=== PATIENT | female | born 2000 | race Caucasian/White ===

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

== ENCOUNTER 2021-02-09 11:12 | Observation (INO) | payer OTHER ==
[~2021-02-09 11:12] MED LIST changes: +AZIT500T4 PO; +CEPH500T PO
[2021-02-09] MEDS ORDERED: IV RINGERS,LACTATED 1000ML 1,000 ML IV PRN ×2 (12:15→16:15)
[2021-02-09 12:52] LABS: CREATININE,RANDOM URINE 66.6 mg/dL (Not Establ.)
[2021-02-09 12:55] LABS: CALCIUM 9.1 mg/dL (8.5-10.1); CREATININE 0.7 mg/dL (0.6-1.0); GFR 107.8; POTASSIUM 3.9 mmol/L (3.5-5.1)
[2021-02-09 12:57] LABS: BASO # 0.1 x10^3/uL (0.0-0.2); BASO % 1 % (0-3); EOS # 0.3 x10^3/uL (0.0-0.7); EOS % 2 % (0-3); HEMATOCRIT 32.4 % (36.0-47.0); HEMOGLOBIN 10.7 g/dL (12.0-15.5); LYMPH # 2.9 x10^3/uL (1.0-4.8); LYMPH % 25 % (24-48); MEAN CORPUSCULAR HEMOGLOBIN 26 pg (25-35); MEAN CORPUSCULAR HGB CONC 33 g/dL (31-37); MEAN CORPUSCULAR VOLUME 80 fL (79-100); MONO # 0.7 x10^3/uL (0.0-1.1); MONO % 6 % (0-9); NEUT # 7.6 x10^3/uL (1.8-7.7); NEUT % 66 % (31-73); PLATELET COUNT 218 x10^3/uL (140-400); RED BLOOD COUNT 4.05 x10^6/uL (3.50-5.40); WHITE BLOOD COUNT 11.6 x10^3/uL (4.0-11.0)
[2021-02-09 13:02] LABS: ALBUMIN 2.7 g/dL (3.4-5.0); ALBUMIN/GLOBULIN RATIO 0.7 (1.0-1.7); TOTAL BILIRUBIN 0.2 mg/dL (0.2-1.0); TOTAL PROTEIN 6.8 g/dL (6.4-8.2)
== END 2021-02-09 14:00 | disposition home or self-care (01) ==
LOC: 3 SO LND 11:12
PROVIDERS: ADMIT Obstetrics & Gynecology; ATTEND Obstetrics & Gynecology
DX: O13.3 Gestational [pregnancy-induced] hypertension without significant proteinuria, third trimester (principal); Z3A.39 39 weeks gestation of pregnancy
CPT/HCPCS: 36415; 80053; 82570; 84156; 85025; G0378; G0379

== ENCOUNTER 2021-02-13 04:23 | Inpatient (IN) | payer OTHER ==
[~2021-02-13] VITALS: Ht 157.5 cm; Wt 101.5 kg
[2021-02-13] MEDS ORDERED: fentaNYL PF VIAL 100 MCG/2 ML VIAL IVP PRN (05:00)
[2021-02-13] MEDS ORDERED: PENICILLIN G K 5,000,000 UNIT in IV DEXTROSE 5% 100ML 100 ML IV ONE (05:00)
[2021-02-13] MEDS ORDERED: LIDOCAINE 1% PF 30 ML VIAL. INJ PRN (05:00)
[2021-02-13] MEDS ORDERED: OXYTOCIN 30 UNIT/500 ML PREMIX 500 ML IV PRN ×2 (05:00→10:15)
[2021-02-13] MEDS ORDERED: MAG HYDROX/ALUMINUM HYD/SIMETH 30 ML ORAL.SUSP PO PRN ×2 (05:00→10:15)
[2021-02-13] MEDS ORDERED: 0.9 % SODIUM CHLORIDE 10 ML DISP.SYRIN. IV PRN ×2 (05:00→10:15)
[2021-02-13] MEDS ORDERED: IV RINGERS,LACTATED 1000ML 1,000 ML IV PRN (05:00)
[2021-02-13] MEDS ORDERED: ONDANSETRON PF 4 MG/2 ML VIAL. IVP PRN (05:00)
[2021-02-13] MEDS ORDERED: TERBUTALINE 1 MG/ML VIAL. SQ PRN (05:00)
[2021-02-13 05:08] LABS: BILIRUBIN,URINE NEGATIVE (NEG); CLARITY,URINE CLOUDY; COLOR,URINE YELLOW; NITRITE,URINE NEGATIVE (NEG); PH,URINE 6.5 (<5.0-8.0); PROTEIN,URINE NEGATIVE (NEG-TRACE); UROBILINOGEN,URINE 0.2 mg/dL (0.2 mg/dL)
[2021-02-13 05:15] LABS: AMPHETAMINE/METHAMPHETAMINE NEG (NEG); BARBITURATES NEG (NEG); BENZODIAZEPINES NEG (NEG); CANNABINOIDS NEG (NEG); COCAINE NEG (NEG); METHADONE NEG (NEG); OPIATES NEG (NEG); PHENCYCLIDINE NEG (NEG)
[2021-02-13] MEDS: IV RINGERS,LACTATED 1000ML 1,000 ML IV SCH ×3 (05:15→11:43)
[2021-02-13 05:24] LABS: BASO % 0 % (0-3); EOS # 0.2 x10^3/uL (0.0-0.7); EOS % 2 % (0-3); HEMATOCRIT 32.5 % (36.0-47.0); HEMOGLOBIN 10.7 g/dL (12.0-15.5); LYMPH % 22 % (24-48); MEAN CORPUSCULAR HEMOGLOBIN 26 pg (25-35); MEAN CORPUSCULAR HGB CONC 33 g/dL (31-37); MEAN CORPUSCULAR VOLUME 80 fL (79-100); MONO # 0.8 x10^3/uL (0.0-1.1); MONO % 6 % (0-9); NEUT # 9.6 x10^3/uL (1.8-7.7); NEUT % 71 % (31-73); PLATELET COUNT 217 x10^3/uL (140-400); RED BLOOD COUNT 4.07 x10^6/uL (3.50-5.40); RED CELL DISTRIBUTION WIDTH 15.5 % (11.5-14.5); WHITE BLOOD COUNT 13.7 x10^3/uL (4.0-11.0)
[2021-02-13 05:35] LABS: BACTERIA,URINE MANY /HPF (0-FEW); WBC,URINE TNTC /HPF (0-4)
[2021-02-13 05:36] LABS: TRICHOMONAS,URINE PRESENT
[2021-02-13 05:48] VITALS: BP 134/71
[2021-02-13] MEDS ORDERED: ROPIVacaine 0.2% PF 10 ML VIAL. ONE ×2 (06:23→07:00)
[2021-02-13] MEDS ORDERED: L&D EPIDURAL SYRINGE 50 ML ONE (06:24)
[2021-02-13] MEDS ORDERED: L&D EPIDURAL 50 ML SYRINGE. ONE (07:00)
[2021-02-13] MEDS ORDERED: OXYTOCIN PREMIX 30 UNIT/500 ML NS BAG. IV ONE (07:00)
--- NOTE | 2021-02-13 07:57 | PDOC1 ---
OB - History Hx of Present Care: Good Care Ultrasounds: Normal mid trimester US Obstetrical Complications: None Medical Complications: None Past Family/Social History * Past Medical, Surgical, Family and Obstetric Histories reviewed from chart. Blood Type: O+ Rubella: Immune RPR/VDRL: Negative GBS Status: Negative HBsAG: Negative OB - Chief Complaint & HPI Date of Admission: Date of Admission: Feb 13, 2021 at 04:23 Chief Complaint/History : 1 EGA: 39 Reason for admission: active labor Admission Nurse Assessment Rev: Yes OB - Admission Exam Physical Exam Vitals: VS - Last 72 Hours, by Label Date Time Temp Pulse Resp B/P (MAP) Pulse Ox O2 Delivery O2 Flow Rate FiO2 02/13/21 05:48 98.1 114 18 134/71 (92) 97 Room Air 98.1 HEENT: Normal Heart: Regular Rate Lungs: Clear Abdomen: Gravid, Non tender, Soft Extremities: Edema Reflexes: Normal Cervical Dilatation: 4cm Effacement: 75% Station: -2 Membranes: Intact Heart Rate: Normal Accelerations: Accelerations Present Decelerations: No decelerations Contractions on Admission: < 5 Minutes Apart Intensity: Firm Text A: 39 wks IUP Active labor Trichomonas Positive P: Admit for labor management. Will give Flagyl for Trichomonas. PAOLA LANDERS Jr, MD Feb 13, 2021 07:57
[2021-02-13] MEDS: PENICILLIN G K 2,500,000 UNIT in IV DEXTROSE 5% 50 ML IV SCH ×3 (09:00→17:00)
--- NOTE | 2021-02-13 10:12 | PDOC4 ---
VAGINAL DELIVERY DATE DATE: 02/13/21 TIME: 10:11 : 1 Para: 1 EGA: 39 VAGINAL DELIVERY: VTX VACCUM ASSISTED: No PLACENTA: Spontaneous 8/9 SEX: Male WEIGHT Weight [ 9 lbs. 1 oz] Nuchal Cord: No Amniotic Fluid: Clear PAIN: Epidural EPISIOTOMY: No EXTENSION: Yes (2nd degree midline laceration) REPAIRED WITH 2-0 vicryl EBL 300 ml COMPLICATIONS none CONDITION pt. stable Signs of Intrauterine Infectio: None Shoulder Dystocia: No PAOLA LANDERS Jr, MD Feb 13, 2021 10:12
[2021-02-13] MEDS ORDERED: PHENYLEPH/MINERAL OIL/PETROLAT RECTAL OINTMENT TUBE. RC PRN (10:15)
[2021-02-13] MEDS ORDERED: MAGNESIUM HYDROXIDE 2,400 MG/30 ML ORAL.SUSP. PO PRN (10:15)
[2021-02-13] MEDS ORDERED: MMR per PROTOCOL. MC PRN (10:15)
[2021-02-13] MEDS ORDERED: HYDROCORTISONE 1% TOPICAL OINTMENT 30GM TUBE. TP PRN (10:15)
[2021-02-13] MEDS ORDERED: diphenhydrAMINE HCL 25 MG CAPSULE PO PRN (10:15)
[2021-02-13] MEDS ORDERED: ACETAMINOPHEN 325 MG TABLET. PO PRN (10:15)
[2021-02-13] MEDS ORDERED: ZOLPIDEM 5 MG TABLET. PO PRN (10:15)
[2021-02-13] MEDS ORDERED: BENZOCAINE 20% TOPICAL AEROSOL SPRAY 57GM CAN. TP PRN (10:15)
[2021-02-13] MEDS ORDERED: SIMETHICONE 80 MG TAB.CHEW PO PRN (10:15)
[2021-02-13] MEDS ORDERED: TDaP (Adacel) per PROTOCOL. MC PRN (10:15)
[2021-02-13] MEDS ORDERED: metroNIDAZOLE 500 MG TABLET PO ONE (11:00)
[2021-02-13 13:30] VITALS: BP 116/70
[2021-02-13] MEDS: oxyCODONE/APAP 5/325 1 TAB TABLET PO PRN (15:24)
[2021-02-13 17:00] VITALS: BP 103/62
[2021-02-13] MEDS: FERROUS SULFATE 325 MG TABLET. PO SCH (17:00)
[2021-02-13 21:00] VITALS: BP 111/69
[2021-02-13] MEDS: ACETAMINOPHEN 325 MG TABLET. PO PRN (21:10)
[2021-02-14 00:40] VITALS: BP 113/64
[2021-02-14] MEDS: DOCUSATE SODIUM 100 MG CAPSULE. PO PRN ×3 (05:34→17:51)
[2021-02-14] MEDS: ACETAMINOPHEN 325 MG TABLET. PO PRN (05:35)
[2021-02-14 06:00] VITALS: BP 108/56
[2021-02-14 07:12] LABS: BASO % 0 % (0-3); EOS # 0.1 x10^3/uL (0.0-0.7); EOS % 1 % (0-3); HEMATOCRIT 26.1 % (36.0-47.0); HEMOGLOBIN 8.5 g/dL (12.0-15.5); LYMPH # 2.5 x10^3/uL (1.0-4.8); LYMPH % 19 % (24-48); MEAN CORPUSCULAR HEMOGLOBIN 26 pg (25-35); MEAN CORPUSCULAR HGB CONC 33 g/dL (31-37); MEAN CORPUSCULAR VOLUME 82 fL (79-100); MONO # 0.9 x10^3/uL (0.0-1.1); MONO % 7 % (0-9); NEUT # 9.6 x10^3/uL (1.8-7.7); NEUT % 73 % (31-73); PLATELET COUNT 185 x10^3/uL (140-400); RED CELL DISTRIBUTION WIDTH 15.2 % (11.5-14.5); WHITE BLOOD COUNT 13.1 x10^3/uL (4.0-11.0)
[2021-02-14 08:10] VITALS: BP 105/64
[2021-02-14] MEDS: MULTIVITAMIN with MINERAL TABLET. PO SCH (08:16)
[2021-02-14] MEDS: FERROUS SULFATE 325 MG TABLET. PO SCH ×2 (08:16→17:51)
[2021-02-14] MEDS: oxyCODONE/APAP 5/325 1 TAB TABLET PO PRN ×3 (08:16→19:21)
--- NOTE | 2021-02-14 08:44 | PDOC ---
OB Progress Note Date of Service 02/14/21 Time of Evaluation 0845 Notes Pt. feeling well. Pain controlled. Lab Laboratory Tests Test 02/13/21 05:00 02/13/21 05:12 02/13/21 06:00 02/14/21 06:40 Urine Collection Type Unknown Urine Color Yellow Urine Clarity Cloudy Urine pH 6.5 (<5.0-8.0) Urine Specific [place] 1.010 (1.000-1.030) Urine Protein Negative mg/dL (NEG-TRACE) Urine Glucose (UA) Negative mg/dL (NEG) Urine Ketones (Stick) Negative mg/dL (NEG) Urine Blood Small (NEG) Urine Nitrite Negative (NEG) Urine Bilirubin Negative (NEG) Urine Urobilinogen Dipstick 0.2 mg/dL (0.2 mg/dL) Urine Leukocyte Esterase Large (NEG) Urine RBC 1-2 /HPF (0-2) Urine WBC Tntc /HPF (0-4) Urine Squamous Epithelial Cells Mod /LPF Urine Transitional Epithelial Cells Occ /LPF Urine Bacteria Many /HPF (0-FEW) Urine Mucus Mod /LPF Urine Trichomonas Present Urine Opiates Screen Neg (NEG) Urine Methadone Screen Neg (NEG) Urine Barbiturates Neg (NEG) Urine Phencyclidine Screen Neg (NEG) Urine Amphetamine/Methamphetamine Neg (NEG) Urine Benzodiazepines Screen Neg (NEG) Urine Cocaine Screen Neg (NEG) Urine Cannabinoids Screen Neg (NEG) Urine Ethyl Alcohol Neg (NEG) White Blood Count 13.7 x10^3/uL (4.0-11.0) 13.1 x10^3/uL (4.0-11.0) Red Blood Count 4.07 x10^6/uL (3.50-5.40) 3.20 x10^6/uL (3.50-5.40) Hemoglobin 10.7 g/dL (12.0-15.5) 8.5 g/dL (12.0-15.5) Hematocrit 32.5 % (36.0-47.0) 26.1 % (36.0-47.0) Mean Corpuscular Volume 80 fL (79-100) 82 fL (79-100) Mean Corpuscular Hemoglobin 26 pg (25-35) 26 pg (25-35) Mean Corpuscular Hemoglobin Concent 33 g/dL (31-37) 33 g/dL (31-37) Red Cell Distribution Width 15.5 % (11.5-14.5) 15.2 % (11.5-14.5) Platelet Count 217 x10^3/uL (140-400) 185 x10^3/uL (140-400) Neutrophils (%) (Auto) 71 % (31-73) 73 % (31-73) Lymphocytes (%) (Auto) 22 % (24-48) 19 % (24-48) Monocytes (%) (Auto) 6 % (0-9) 7 % (0-9) Eosinophils (%) (Auto) 2 % (0-3) 1 % (0-3) Basophils (%) (Auto) 0 % (0-3) 0 % (0-3) Neutrophils # (Auto) 9.6 x10^3/uL (1.8-7.7) 9.6 x10^3/uL (1.8-7.7) Lymphocytes # (Auto) 3.0 x10^3/uL (1.0-4.8) 2.5 x10^3/uL (1.0-4.8) Monocytes # (Auto) 0.8 x10^3/uL (0.0-1.1) 0.9 x10^3/uL (0.0-1.1) Eosinophils # (Auto) 0.2 x10^3/uL (0.0-0.7) 0.1 x10^3/uL (0.0-0.7) Basophils # (Auto) 0.0 x10^3/uL (0.0-0.2) 0.0 x10^3/uL (0.0-0.2) Treponema pallidum Antibody Nonreactive (Nonreactive) SARS-CoV-2 RNA (MEHNAZ) Negative (Negative) SARS-CoV-2 Antigen (Rapid) Negative (NEGATIVE) Laboratory Tests Test 02/14/21 06:40 White Blood Count 13.1 x10^3/uL (4.0-11.0) Red Blood Count 3.20 x10^6/uL (3.50-5.40) Hemoglobin 8.5 g/dL (12.0-15.5) Hematocrit 26.1 % (36.0-47.0) Mean Corpuscular Volume 82 fL (79-100) Mean Corpuscular Hemoglobin 26 pg (25-35) Mean Corpuscular Hemoglobin Concent 33 g/dL (31-37) Red Cell Distribution Width 15.2 % (11.5-14.5) Platelet Count 185 x10^3/uL (140-400) Neutrophils (%) (Auto) 73 % (31-73) Lymphocytes (%) (Auto) 19 % (24-48) Monocytes (%) (Auto) 7 % (0-9) Eosinophils (%) (Auto) 1 % (0-3) Basophils (%) (Auto) 0 % (0-3) Neutrophils # (Auto) 9.6 x10^3/uL (1.8-7.7) Lymphocytes # (Auto) 2.5 x10^3/uL (1.0-4.8) Monocytes # (Auto) 0.9 x10^3/uL (0.0-1.1) Eosinophils # (Auto) 0.1 x10^3/uL (0.0-0.7) Basophils # (Auto) 0.0 x10^3/uL (0.0-0.2) Medications Current Medications Ringer's Solution 1,000 ml @ 125 mls/hr Q8H IV Last administered on 02/13/21at 11:43; Start 02/13/21 at 04:30; Stop 02/13/21 at 19:34; Status DC Sodium Chloride (Normal Saline Flush) 3 ml QSHIFT PRN IV AFTER MEDS AND BLOOD DRAWS; Start 02/13/21 at 05:00; Stop 02/13/21 at 10:21; Status DC Ringer's Solution 1,000 ml @ 125 mls/hr Q8H PRN IV hydration; Start 02/13/21 at 05:00 Fentanyl Citrate (Fentanyl 2ml Vial) 100 mcg PRN Q30MIN PRN IVP Severe pain Last administered on 02/13/21at 05:23; Start 02/13/21 at 05:00 Acetaminophen (Tylenol) 650 mg PRN Q6HRS PRN PO MILD PAIN / TEMP > 100.3'F Last administered on 02/14/21at 05:35; Start 02/13/21 at 05:00 Ondansetron HCl (Zofran) 8 mg PRN Q6HRS PRN IVP NAUSEA/VOMITING; Start 02/13/21 at 05:00 Al Hydroxide/Mg Hydroxide (Mylanta Plus Xs) 30 ml PRN Q4HRS PRN PO HEARTBURN / GAS; Start 02/13/21 at 05:00; Status Cancel Terbutaline Sulfate (Brethine) 0.25 mg 1X PRN PRN SQ SEE COMMENTS; Start 02/13/21 at 05:00; Stop 02/14/21 at 04:59; Status DC Lidocaine HCl (Xylocaine 1% Pf 30ml Vial) 30 ml 1X PRN PRN INJ SEE COMMENTS Last administered on 02/13/21at 11:43; Start 02/13/21 at 05:00; Stop 02/15/21 at 04:59 Oxytocin 500 ml @ 0 mls/hr CONT PRN PRN IV Post delivery bleeding; Start 02/13/21 at 05:00 Penicillin G Potassium [id number] unit/Dextrose 100 ml @ 100 mls/hr 1X ONCE IV Last administered on 02/13/21at 05:15; Start 02/13/21 at 05:00; Stop 02/13/21 at 05:59; Status DC Penicillin G Potassium [id number] unit/Dextrose 50 ml @ 100 mls/hr Q4H IV ; Start 02/13/21 at 09:00; Stop 02/13/21 at 19:34; Status DC Ropivacaine (Naropin 0.2%) 10 ml STK-MED ONCE .ROUTE ; Start 02/13/21 at 06:23; Stop 02/13/21 at 06:24; Status DC Fentanyl Citrate 50 ml @ As Directed STK-MED ONCE .ROUTE ; Start 02/13/21 at 06:24; Stop 02/13/21 at 06:24; Status DC Sodium Chloride (Normal Saline Flush) 10 ml QSHIFT PRN IV AFTER MEDS AND BLOOD DRAWS; Start 02/13/21 at 10:15 Oxytocin 500 ml @ 62.5 mls/hr CONT PRN IV SEE I/O RECORD; Start 02/13/21 at 10 :15; Stop 02/13/21 at 18:14; Status DC Acetaminophen (Tylenol) 650 mg PRN Q6HRS PRN PO MILD PAIN / TEMP > 100.3'F; Start 02/13/21 at 10:15 Docusate Sodium (Colace) 100 mg PRN BID PRN PO CONSTIPATION Last administered on 02/14/21at 08:16; Start 02/13/21 at 10:15 Magnesium Hydroxide (Milk Of Magnesia) 2,400 mg PRN DAILY PRN PO CONSTIPATION; Start 02/13/21 at 10:15 Al Hydroxide/Mg Hydroxide (Mylanta Plus Xs) 30 ml PRN Q4HRS PRN PO HEARTBURN / GAS; Start 02/13/21 at 10:15 Simethicone (Gas-X) 80 mg PRN AFTMEALHC PRN PO GAS / BLOATING; Start 02/13/21 at 10:15 Diphenhydramine HCl (Benadryl) 25 mg PRN Q6HRS PRN PO ITCHING; Start 02/13/21 at 10:15 Benzocaine (Americaine) 1 spray PRN QID PRN TP TOPICAL PAIN; Start 02/13/21 at 10:15 Phenyleph/Shark Oil/Min Oil/Petrol (Preparation H) 1 el PRN QID PRN RC RECTAL PAIN; Start 02/13/21 at 10:15 Hydrocortisone (Cortaid) 1 el PRN QID PRN TP PERINEAL PAIN; Start 02/13/21 at 10:15 Ferrous Sulfate (Feosol) 325 mg BIDWMEALS PO Last administered on 02/14/21at 08:16; Start 02/13/21 at 17:00 Zolpidem Tartrate (Ambien) 5 mg PRN QHS PRN PO INSOMNIA, MAY REPEAT X1; Start 02/13/21 at 10:15 Info (Do NOT chart on this placeholder) 1 ea 1X PRN PRN MC SEE COMMENTS; Start 02/13/21 at 10:15 Info (Do NOT chart on this placeholder) 1 ea 1X PRN PRN MC SEE COMMENTS; Start 02/13/21 at 10:15 Oxycodone/ Acetaminophen (Percocet 5/325) 2 tab PRN Q4HRS PRN PO MODERATE PAIN, SEVERE PAIN Last administered on 02/14/21at 08:16; Start 02/13/21 at 10:15 Multivitamins (Thera M Plus) 1 tab DAILY PO Last administered on 02/14/21at 08:16; Start 02/14/21 at 09:00 Metronidazole (Flagyl) 2,000 mg 1X ONCE PO Last administered on 02/13/21at 12:24; Start 02/13/21 at 11:00; Stop 02/13/21 at 11:01; Status DC Fentanyl Citrate (Zcckddsx-Oylgf-RA 3 Mcg-0.1%) 50 ml STK-MED ONCE .ROUTE ; Start 02/13/21 at 07:00; Stop 02/14/21 at 08:04; Status DC Ropivacaine (Naropin 0.2%) 10 ml STK-MED ONCE .ROUTE ; Start 02/13/21 at 07:00; Stop 02/14/21 at 08:04; Status DC Oxytocin (Oxytocin Premix Infusion) 30 unit STK-MED ONCE IV ; Start 02/13/21 at 07:00; Stop 02/14/21 at 08:04; Status DC Active Scripts Active Azithromycin Tablet (Azithromycin) 500 Mg Tablet 2 Tab PO DAILY Cephalexin 500 Mg Tablet 1 Tab PO BID Zofran (Ondansetron Hcl) 4 Mg Tablet 1 Tab PO Q6HRS [place] 5-325 Tablet (Acetaminophen/Hydrocodone Bitart) 1 Each Tablet 1 Tab PO Q6HRS Reported Percocet 5-325 Mg Tablet (Oxycodone/Acetaminophen) 1 Each Tablet 1-2 Tab PO PRN Q4HRS PRN Zoloft (Sertraline Hcl) 50 Mg Tablet 1.5 Tab PO DAILY Exam Abd: soft, non tender, fundus firm Assessment PPD#1 s/p Plan of Care: Continue current Tx, Mgmt PAOLA LANDERS Jr, MD Feb 14, 2021 08:44
[2021-02-14 12:45] VITALS: BP 127/79
[2021-02-14 16:45] VITALS: BP 111/65
[2021-02-14 20:00] VITALS: BP 108/72
[2021-02-15 04:00] VITALS: BP 101/50
[2021-02-15 08:00] VITALS: BP 136/84
[2021-02-15] MEDS ORDERED: DIPH,PERTUSS(ACELL),TET VAC/PF 0.5 ML SYRINGE. VAX IM ONE (09:15)
[2021-02-15] MEDS: MULTIVITAMIN with MINERAL TABLET. PO SCH (09:30)
[2021-02-15] MEDS: oxyCODONE/APAP 5/325 1 TAB TABLET PO PRN (09:30)
[2021-02-15] MEDS: DOCUSATE SODIUM 100 MG CAPSULE. PO PRN (09:30)
[2021-02-15] MEDS: FERROUS SULFATE 325 MG TABLET. PO SCH (09:30)
--- NOTE | 2021-02-15 11:40 | PDOC3 ---
OB DISCHARGE SUMMARY DATE OF ADMISSION: 02/13/21 DATE OF DISCHARGE: 02/15/21 REASON FOR ADMISSION: Onset of labor INTRAPARTUM PROCEDURES: Spontanous Vag Deliv DISCHARGE DIAGNOSIS: Term Delivered DISCHARGE INFORMATION: Activity (ad jones), Diet (regular), Instructions (pelvic rest x 6 wks) HOSPITAL COURSE Term gestation delivered vaginally without complications. PAOLA LANDERS Jr, MD Feb 15, 2021 11:40
[2021-02-15] MEDS ORDERED: OXYC1TAB15 PO ×2 (11:44→12:01)
--- NOTE | 2021-02-15 12:00 | DISCH ---
DISCHARGE INSTRUCTIONS Condition on Discharge Condition on Discharge: Stable Activity After Discharge Activity Instructions for Disc: Avoid exertion Lifting Instructions after Dis: No heavy lifting, Do not lift >10 pounds Driving Instructions after Dis: Do not drive today Weight Bearing Status after Di: No restrictions Diet after Discharge Diet after Discharge: Regular Contacting the DRKenny after DC Call your doctor for: If your condition worsens Follow-Up Follow Up With: Dr. Ortez in 6 wks Treatment/Equipment after DC Adaptive Equipment Issued: None PAOLA ORTEZ Jr, MD Feb 15, 2021 12:00
--- NOTE | 2021-02-15 14:20 | NUR ---
Pt. discharged off floor at 1420. Family and belongings accompany pt.
== END 2021-02-15 14:20 | disposition home or self-care (01) | DRG 807 ==
LOC: 3 SO LND 04:23 → OBSVTOIN 04:23 → 3 SO LND 18:00
PROVIDERS: ADMIT Obstetrics & Gynecology; ATTEND Obstetrics & Gynecology
PROC: 10E0XZZ Delivery of Products of Conception, External Approach (ICD-10-PCS; principal; 2021-02-13)
PROC: 3E0234Z Introduction of Serum, Toxoid and Vaccine into Muscle, Percutaneous Approach (ICD-10-PCS; 2021-02-13)
PROC: 0KQM0ZZ Repair Perineum Muscle, Open Approach (ICD-10-PCS; 2021-02-13)
PROC: 3E0R3BZ Introduction of Anesthetic Agent into Spinal Canal, Percutaneous Approach (ICD-10-PCS; 2021-02-13)
PROC: 00HU33Z Insertion of Infusion Device into Spinal Canal, Percutaneous Approach (ICD-10-PCS; 2021-02-13)
DX: O98.82 Other maternal infectious and parasitic diseases complicating childbirth (principal); Z37.0 Single live birth; O70.1 Second degree perineal laceration during delivery; Z3A.39 39 weeks gestation of pregnancy; Z20.822 Contact with and (suspected) exposure to COVID-19; A59.9 Trichomoniasis, unspecified; Z23 Encounter for immunization
CPT/HCPCS: 36415; 80307; 81001; 85025; 86592; 86850; 86900; 86901; 87086; 87426; 90471; 90715; J2540; J2590; J2795; J3010; J3490; J7060; J7120; U0003; U0005; G0378